=== PATIENT | male | born 1955 | race Caucasian/White ===

== ENCOUNTER → 2019-05-17 | Outpatient (CLI) | payer OTHER ==
--- NOTE | 2019-05-18 07:56 | US ---
EXAMINATION TYPE: US kidneys/renal and bladder DATE OF EXAM: 05/17/2019 COMPARISON: NONE CLINICAL HISTORY: N18.3 CKD. Abnormal labs EXAM MEASUREMENTS: Right Kidney: 10.7 x 5.9 x 6.2 cm Left Kidney: 9.5 x 5.0 x 4.5 cm Right Kidney: Appeared wnl Left Kidney: Smaller in size and possible cortical thinning when compared to right kidney Bladder: wnl Bilateral Jets seen: Yes There is no evidence for hydronephrosis at this point in time. No nephrolithiasis is seen. No janina s are identified. The urinary bladder is anechoic. Bilateral ureteral jets are seen. IMPRESSION: Mild cortical thinning on the left with no hydronephrosis or nephrolithiasis.
== END | disposition home or self-care (01) ==
LOC: RADUSWWP 15:33
PROVIDERS: ATTEND Internal Medicine
DX: N18.3 Chronic kidney disease, stage 3 (moderate) (principal); R93.429 Abnormal radiologic findings on diagnostic imaging of unspecified kidney
CPT/HCPCS: 76770

== ENCOUNTER 2021-01-21 17:12 | Inpatient (IN) | payer OTHER ==
[2021-01-21] MEDS ORDERED: SODIUM CHLORIDE 0.9% 500 ML 500 ML IV STA (17:50)
--- NOTE | 2021-01-21 18:00 | ED ---
General Adult HPI - General Source: patient, family, RN notes reviewed, old records reviewed Mode of arrival: wheelchair Limitations: physical limitation - History of Present Illness -: days(s) (5) Location: left, right (Numbness to his hands RESOLVED now), upper extremity, lower extremity (Left lower extremity tremors for 2 days) Radiation: non-radiation Severity scale (1-10): 0 Consistency: intermittent Improves with: none Worsens with: none <Joe Mckinnon - Last Filed: 01/21/21 20:14> <Jeremiah Lin - Last Filed: 01/21/21 20:22> - General Chief complaint: Neuro Symptoms/Deficit Stated complaint: tremors,weakness - History of Present Illness Initial comments: 65-year-old white male, alert and oriented 4, presents to the emergency room with complaints of numbness to his left hand 5 days ago that resolved and then went to his right hand which is also resolved. For the past 2 days patient has developed tremors of the left lower extremity that come and go. He states that he's had insatiable thirst and has been urinating more often. He denies any abdominal pain or dysuria. Patient denies any headaches. He is having difficulty ambulating at home due to the tremors. He did not fall and hit his head. He denies any back pain. (Joe Mckinnon) Patient had presented with paresthesia, increased polyuria and polydipsia, found to be a new onset diabetic with blood sugar greater than 800. He is not acidotic. He does have signs of hyper osmolality with a serum osmolality of 337. He's started on an insulin drip as well as given normal saline boluses while in the emergency department. He will be admitted to the ICU. I discussed case both with the admitting group, [facility]mer for [facility], and with Dr. Fadumo palmer for the ICU. (Jeremiah Lin) - Related Data Home Medications Medication Instructions Recorded Confirmed Aspirin 81 mg PO DAILY 01/21/21 01/21/21 Atorvastatin [Lipitor] 10 mg PO DAILY 01/21/21 01/21/21 Dextroamphetamine/Amphetamine 30 mg PO BID@0800,1600 01/21/21 01/21/21 [Adderall] Omeprazole 20 mg PO DAILY 01/21/21 01/21/21 amLODIPine [Norvasc] 5 mg PO DAILY 01/21/21 01/21/21 hydroCHLOROthiazide 25 mg PO BID@0800,1600 01/21/21 01/21/21 Allergies Allergy/AdvReac Type Severity Reaction Status Date / Time Pork/Porcine Containing Allergy Abdominal Verified 01/21/21 17:32 Products Pain [Pork] Review of Systems ROS Other: All systems not noted in ROS Statement are negative. <Joe Mckinnon - Last Filed: 01/21/21 20:14> ROS Other: All systems not noted in ROS Statement are negative. <ZairexavierJeremiah - Last Filed: 01/21/21 20:22> ROS Statement: Those systems with pertinent positive or pertinent negative responses have been documented in the HPI. Past Medical History Past Medical History: CVA/TIA, GERD/Reflux, Hyperlipidemia, Hypertension History of Any Multi-Drug Resistant Organisms: None Reported Past Surgical History: No Surgical Hx Reported Past Psychological History: ADD/ADHD Smoking Status: Former smoker Past Alcohol Use History: None Reported Past Drug Use History: Marijuana <Joe Mckinnon - Last Filed: 01/21/21 20:14> General Exam Limitations: physical limitation General appearance: alert, in no apparent distress Head exam: Present: atraumatic, normocephalic, normal inspection Eye exam: Present: normal appearance, PERRL, EOMI. Absent: scleral icterus, conjunctival injection, nystagmus, periorbital swelling Pupils: Present: normal accommodation ENT exam: Present: normal exam, normal oropharynx, mucous membranes moist Neck exam: Present: normal inspection, full ROM. Absent: tenderness, meningismus, lymphadenopathy, thyromegaly Respiratory exam: Present: normal lung sounds bilaterally. Absent: respiratory distress, wheezes, rales, rhonchi, stridor, chest wall tenderness, accessory muscle use, decreased breath sounds, prolonged expiratory Cardiovascular Exam: Present: regular rate, normal rhythm, normal heart sounds. Absent: systolic murmur, diastolic murmur, rubs, gallop, clicks GI/Abdominal exam: Present: soft, normal bowel sounds. Absent: distended, tenderness, guarding, rebound, rigid Extremities exam: Present: normal inspection, full ROM, normal capillary refill. Absent: tenderness, pedal edema, joint swelling, calf tenderness Back exam: Present: normal inspection, full ROM. Absent: tenderness, CVA tenderness (R), CVA tenderness (L), muscle spasm, paraspinal tenderness, vertebral tenderness, rash noted Expanded Back exam: Absent: saddle anesthesia Back exam: Negative Straight Leg Raising: Left, Right Neurological exam: Present: alert, oriented X3, CN II-XII intact Expanded Patient oriented to: Present: person, place, time Speech: Present: fluid speech Cranial nerves: EOM's Intact: Normal, Gag Reflex: Normal, Tongue Deviation: Normal Cerebellar function: Finger to Nose: Normal, Heel to Resendez: Normal (Patient with an intermittent visible tremor of the left lower extremity) Motor strength exam: RUE: 5, LUE: 5, RLE: 5, LLE: 5 Eye Response: (4) open spontaneously Motor Response: (6) obeys commands Verbal Response: (5) oriented [place] Total: 15 Psychiatric exam: Present: normal affect, normal mood Skin exam: Present: warm, dry, intact, normal color. Absent: rash, cyanosis, diaphoretic, erythema, petechiae, pallor, mottled <Joe Mckinnon - Last Filed: 01/21/21 20:14> Course Vital Signs 01/21/21 01/21/21 17:29 19:25 Temperature 98.0 F Pulse Rate 87 75 Respiratory 18 18 Rate Blood Pressure 149/87 135/86 O2 Sat by Pulse 95 95 Oximetry EKG Findings - EKG Results: EKG: sinus rhythm (Ventricular rate of 76, CA interval 0.154, QRS of 0.82, Q received 0.488) <Joe Mckinnon - Last Filed: 01/21/21 20:14> Medical Decision Making - Lab Data Result diagrams: 01/21/21 17:51 01/21/21 17:51 <Joe Mckinnon - Last Filed: 01/21/21 20:14> - Lab Data Result diagrams: 01/21/21 17:51 01/21/21 17:51 <Jeremiah Lin - Last Filed: 01/21/21 20:22> - Medical Decision Making Patient's glucose is 851 with evidence of a new onset diabetes. His corrected sodium is 134. Lactic acid is 2.6. Urine shows 4+ glucose. Serum osmolality 337. He was given a liter and half of IV fluids and started on insulin drip. EKG shows no ST elevation in troponin is negative at 0.012. CT of the brain shows cerebral atrophy and an old right internal capsule lacunar infarct no intracranial hemorrhage or mass or midline shift. Pt is alert and oriented, no complaints of pain. Case was discussed with Dr. Lin, patient will be admitted to the ICU with hyperosmolar hyperglycemic syndrome.. (Joe Mckinnon) - Lab Data Lab Results 01/21/21 01/21/21 01/21/21 Range/Units 17:51 17:51 17:51 WBC 9.3 (3.8-10.6) k/uL RBC 6.01 H (4.30-5.90) m/uL Hgb 18.6 H (13.0-17.5) gm/dL Hct 53.4 H (39.0-53.0) % MCV 88.9 (80.0-100.0) fL MCH 30.9 (25.0-35.0) pg MCHC 34.7 (31.0-37.0) g/dL RDW 13.7 (11.5-15.5) % Plt Count 208 (150-450) k/uL MPV 8.7 Neutrophils % 65 % Lymphocytes % 24 % Monocytes % 5 % Eosinophils % 3 % Basophils % 1 % Neutrophils # 6.1 (1.3-7.7) k/uL Lymphocytes # 2.3 (1.0-4.8) k/uL Monocytes # 0.5 (0-1.0) k/uL Eosinophils # 0.2 (0-0.7) k/uL Basophils # 0.1 (0-0.2) k/uL Sodium 122 L (137-145) mmol/L Potassium 4.7 (3.5-5.1) mmol/L Chloride 84 L (98-107) mmol/L Carbon Dioxide 23 (22-30) mmol/L Anion Gap 15 mmol/L BUN 33 H (9-20) mg/dL Creatinine 1.27 H (0.66-1.25) mg/dL Est GFR (CKD-EPI)AfAm 69 (>60 ml/min/1.73 sqM) Est GFR (CKD-EPI)NonAf 59 (>60 ml/min/1.73 sqM) Glucose 851 H* (74-99) mg/dL Osmolality (280-301) mosm/kg Plasma Lactic Acid Capo (0.7-2.0) mmol/L Calcium 9.7 (8.4-10.2) mg/dL Magnesium 1.8 (1.6-2.3) mg/dL Total Bilirubin 1.5 H (0.2-1.3) mg/dL AST 45 (17-59) U/L ALT 52 H (4-49) U/L Alkaline Phosphatase 119 (38-126) U/L Troponin I (0.000-0.034) ng/mL Total Protein 7.3 (6.3-8.2) g/dL Albumin 4.6 (3.5-5.0) g/dL Urine Color Light Yellow Urine Appearance Clear (Clear) Urine pH 6.0 (5.0-8.0) Ur Specific [place] 1.029 (1.001-1.035) Urine Protein Negative (Negative) Urine Glucose (UA) 4+ H (Negative) Urine Ketones Negative (Negative) Urine Blood Negative (Negative) Urine Nitrite Negative (Negative) Urine Bilirubin Negative (Negative) Urine Urobilinogen <2.0 (<2.0) mg/dL Ur Leukocyte Esterase Negative (Negative) Acetone, Qual (Negative) 01/21/21 01/21/21 01/21/21 Range/Units 17:51 17:51 19:18 WBC (3.8-10.6) k/uL RBC (4.30-5.90) m/uL Hgb (13.0-17.5) gm/dL Hct (39.0-53.0) % MCV (80.0-100.0) fL MCH (25.0-35.0) pg MCHC (31.0-37.0) g/dL RDW (11.5-15.5) % Plt Count (150-450) k/uL MPV Neutrophils % % Lymphocytes % % Monocytes % % Eosinophils % % Basophils % % Neutrophils # (1.3-7.7) k/uL Lymphocytes # (1.0-4.8) k/uL Monocytes # (0-1.0) k/uL Eosinophils # (0-0.7) k/uL Basophils # (0-0.2) k/uL Sodium (137-145) mmol/L Potassium (3.5-5.1) mmol/L Chloride (98-107) mmol/L Carbon Dioxide (22-30) mmol/L Anion Gap mmol/L BUN (9-20) mg/dL Creatinine (0.66-1.25) mg/dL Est GFR (CKD-EPI)AfAm (>60 ml/min/1.73 sqM) Est GFR (CKD-EPI)NonAf (>60 ml/min/1.73 sqM) Glucose (74-99) mg/dL Osmolality 337 H* (280-301) mosm/kg Plasma Lactic Acid Capo 2.6 H* (0.7-2.0) mmol/L Calcium (8.4-10.2) mg/dL Magnesium (1.6-2.3) mg/dL Total Bilirubin (0.2-1.3) mg/dL AST (17-59) U/L ALT (4-49) U/L Alkaline Phosphatase (38-126) U/L Troponin I <0.012 (0.000-0.034) ng/mL Total Protein (6.3-8.2) g/dL Albumin (3.5-5.0) g/dL Urine Color Urine Appearance (Clear) Urine pH (5.0-8.0) Ur Specific [place] (1.001-1.035) Urine Protein (Negative) Urine Glucose (UA) (Negative) Urine Ketones (Negative) Urine Blood (Negative) Urine Nitrite (Negative) Urine Bilirubin (Negative) Urine Urobilinogen (<2.0) mg/dL Ur Leukocyte Esterase (Negative) Acetone, Qual Negative (Negative) Disposition Decision Date: 01/21/21 Decision Time: 20:15 <Joe Mckinnon - Last Filed: 01/21/21 20:14> <Jeremiah Lin - Last Filed: 01/21/21 20:22> Clinical Impression: Hyperosmolar hyperglycemic state (HHS) Disposition: ADMITTED IP TO THIS HOSP Condition: Fair Referrals: Nicholas Perez MD [Primary Care Provider] - 1-2 days
[2021-01-21 18:16] LABS: Appearance,Urine Clear (Clear); Basophils # (A) 0.1 k/uL (0-0.2); Basophils % (A) 1 %; Bilirubin,Urine Negative (Negative); Blood,Urine Negative (Negative); Color,Urine Light Yellow; Eosinophils # (A) 0.2 k/uL (0-0.7); Eosinophils % (A) 3 %; Glucose,Urine (UA) 4+ (Negative); HCT 53.4 % (39.0-53.0); HGB 18.6 gm/dL (13.0-17.5); Ketones,Urine Negative (Negative); Leukocyte Esterase,Urine Negative (Negative); Lymphocytes # (A) 2.3 k/uL (1.0-4.8); Lymphocytes % (A) 24 %; MCH 30.9 pg (25.0-35.0); MCHC 34.7 g/dL (31.0-37.0); MCV 88.9 fL (80.0-100.0); Mean Platelet Volume 8.7; Monocytes # (A) 0.5 k/uL (0-1.0); Monocytes % (A) 5 %; Neutrophils # (A) 6.1 k/uL (1.3-7.7); Neutrophils % (A) 65 %; Nitrite,Urine Negative (Negative); Platelet Count 208 k/uL (150-450); Protein,Urine Negative (Negative); RBC 6.01 m/uL (4.30-5.90); RDW 13.7 % (11.5-15.5); Specific Gravity,Urine 1.029 (1.001-1.035); Urobilinogen,Urine <2.0 mg/dL (<2.0); WBC 9.3 k/uL (3.8-10.6)
[2021-01-21 18:31] LABS: Albumin 4.6 g/dL (3.5-5.0); Calcium 9.7 mg/dL (8.4-10.2); Magnesium 1.8 mg/dL (1.6-2.3); Total Bilirubin 1.5 mg/dL (0.2-1.3); Total Protein 7.3 g/dL (6.3-8.2)
[2021-01-21 18:38] LABS: Potassium 4.7 mmol/L (3.5-5.1)
[2021-01-21] MEDS ORDERED: SODIUM CHLORIDE 0.9% 1,000 ML IV ONE ×2 (18:41→20:16)
[2021-01-21] MEDS ORDERED: SODIUM CHLORIDE 0.9% 1,000 ML IV SCH (18:45)
[2021-01-21] MEDS ORDERED: INSULIN REGULAR BOLUS (FROM DRIP BAG) IV ONE (18:45)
--- NOTE | 2021-01-21 19:14 | CT ---
EXAMINATION TYPE: CT brain wolf lara con DATE OF EXAM: 01/21/2021 COMPARISON: None HISTORY: Pain, whole body tremors. Pt hx stroke w/LT side weakness CT DLP: 1527.6 mGycm Automated exposure control for dose reduction was used. Images of the brain and cervical spine obtained with no contrast. There is cerebral atrophy. There is no mass effect nor midline shift. There is no sign of intracrania l hemorrhage. There is 2 x 1 cm area of hypodensity in the anterior right internal capsule related to old lacunar infarct. The calvarium is intact. Skull base is intact. There is normal aeration of the mastoid sinuses. Cervical vertebra have normal alignment. There is anterior spurring from C3 to C7. Facet joints are i ntact. Posterior elements are intact. There is no evidence of a fracture. There is minimal cervical d isc space narrowing. IMPRESSION: Mild spondylotic changes in the cervical spine. No fracture. Cerebral atrophy and old right internal capsule lacunar infarct. No acute intracranial abnormality.
[2021-01-21] MEDS: INSULIN REGULAR 100 UNIT in SODIUM CHLORIDE 0.9% 100 ML IV SCH (19:35)
[2021-01-21] MEDS ORDERED: SODIUM CHLORIDE 0.9% 500 ML 500 ML IV ONE (20:20)
[2021-01-21 20:31] LABS: Glucose,Whole Blood 564 mg/dL (75-99)
[2021-01-21 20:31] LABS: Glucose,Whole Blood 599 mg/dL (75-99)
[2021-01-21 20:38] LABS: VBG PH 7.41 (7.31-7.41)
[2021-01-21 21:03] LABS: Glucose,Whole Blood 451 mg/dL (75-99)
[2021-01-21 21:36] LABS: Glucose,Whole Blood 371 mg/dL (75-99)
[2021-01-21 22:14] LABS: Glucose,Whole Blood 300 mg/dL (75-99)
[2021-01-21] MEDS: D5-0.45% NACL WITH KCL 20MEQ/L 1,000 ML IV SCH (22:50)
[2021-01-21 23:13] LABS: Glucose,Whole Blood 378 mg/dL (75-99)
[2021-01-22 00:15] LABS: Glucose,Whole Blood 233 mg/dL (75-99)
[2021-01-22 00:39] LABS: African American GFR (CKD) >90 (>60 ml/min/1.73 sqM); Anion Gap 10 mmol/L; Blood Urea Nitrogen 27 mg/dL (9-20); Carbon Dioxide 25 mmol/L (22-30); Chloride 98 mmol/L (98-107); Glucose 221 mg/dL (74-99); Non-African American GFR(CKD) 83 (>60 ml/min/1.73 sqM); Phosphorus 2.4 mg/dL (2.5-4.5); Potassium 2.8 mmol/L (3.5-5.1); Sodium 133 mmol/L (137-145)
[2021-01-22 01:19] LABS: Glucose,Whole Blood 185 mg/dL (75-99)
[2021-01-22] MEDS: POTASSIUM CHLORIDE ER 20 MEQ TAB.ER PO SCH ×3 (02:09→04:35)
[2021-01-22 02:13] LABS: Glucose,Whole Blood 173 mg/dL (75-99)
[2021-01-22 03:13] LABS: Glucose,Whole Blood 148 mg/dL (75-99)
[2021-01-22 04:08] LABS: ALT 44 U/L (4-49); AST 33 U/L (17-59); African American GFR (CKD) >90 (>60 ml/min/1.73 sqM); Albumin 3.8 g/dL (3.5-5.0); Alkaline Phosphatase 86 U/L (38-126); Anion Gap 8 mmol/L; Blood Urea Nitrogen 24 mg/dL (9-20); Calcium 8.8 mg/dL (8.4-10.2); Carbon Dioxide 28 mmol/L (22-30); Chloride 99 mmol/L (98-107); Glucose 120 mg/dL (74-99); Non-African American GFR(CKD) 83 (>60 ml/min/1.73 sqM); Phosphorus 2.4 mg/dL (2.5-4.5); Sodium 135 mmol/L (137-145); Total Bilirubin 0.9 mg/dL (0.2-1.3); Total Protein 6.4 g/dL (6.3-8.2)
[2021-01-22 04:23] LABS: Basophils # (A) 0.1 k/uL (0-0.2); Basophils % (A) 1 %; Eosinophils # (A) 0.3 k/uL (0-0.7); Eosinophils % (A) 4 %; HCT 48.6 % (39.0-53.0); Lymphocytes # (A) 3.1 k/uL (1.0-4.8); Lymphocytes % (A) 36 %; MCH 30.4 pg (25.0-35.0); MCHC 34.9 g/dL (31.0-37.0); MCV 86.9 fL (80.0-100.0); Mean Platelet Volume 8.1; Monocytes # (A) 0.5 k/uL (0-1.0); Monocytes % (A) 6 %; Neutrophils # (A) 4.5 k/uL (1.3-7.7); Neutrophils % (A) 52 %; Platelet Count 175 k/uL (150-450); RBC 5.59 m/uL (4.30-5.90); RDW 13.9 % (11.5-15.5); WBC 8.7 k/uL (3.8-10.6)
[2021-01-22 04:37] LABS: Glucose,Whole Blood 202 mg/dL (75-99)
[2021-01-22] MEDS: D5-0.45% NACL WITH KCL 20MEQ/L 1,000 ML IV SCH (04:39)
[2021-01-22 05:36] LABS: Glucose,Whole Blood 208 mg/dL (75-99)
[2021-01-22] MEDS: INSULIN REGULAR 100 UNIT in SODIUM CHLORIDE 0.9% 100 ML IV SCH (06:27)
[2021-01-22 07:36] LABS: Glucose,Whole Blood 257 mg/dL (75-99)
[2021-01-22 08:07] LABS: Glucose,Whole Blood 259 mg/dL (75-99)
[2021-01-22 08:52] LABS: African American GFR (CKD) >90 (>60 ml/min/1.73 sqM); Anion Gap 10 mmol/L; Blood Urea Nitrogen 20 mg/dL (9-20); Calcium 8.6 mg/dL (8.4-10.2); Carbon Dioxide 21 mmol/L (22-30); Chloride 101 mmol/L (98-107); Glucose 267 mg/dL (74-99); Non-African American GFR(CKD) 88 (>60 ml/min/1.73 sqM); Phosphorus 2.7 mg/dL (2.5-4.5); Sodium 132 mmol/L (137-145)
[2021-01-22 08:57] LABS: Magnesium 1.8 mg/dL (1.6-2.3); Potassium 4.6 mmol/L (3.5-5.1)
[2021-01-22] MEDS ORDERED: INSULIN DETEMIR (LEVEMIR) 100 UNIT/ML SYR SQ SCH (09:00)
[2021-01-22] MEDS: ASPIRIN 81 MG PO SCH (09:46)
[2021-01-22] MEDS: amLODIPine 5 MG TAB PO SCH (09:46)
[2021-01-22] MEDS: ATORVASTATIN 10 MG TAB PO SCH (09:46)
[2021-01-22] MEDS: PANTOPRAZOLE 40 MG TABLET PO SCH (09:47)
--- NOTE | 2021-01-22 10:31 | P.HPIM ---
History of Present Illness Patient is pleasant 71-year-old male came in with complaints of polyuria polydipsia along with some bun numbness in the left hand. Patient developed worsening left lower extremity. Patient is found to have highly elevated blood sugars of 851 patient is not a known diabetic and doesn't sodium of 122 and multiple other electrolyte abnormalities including serum creatinine of 1.27, serum calcium was 9.7. Patient also had elevated lactic acid of 2.6. Patient doesn't have any fever chills denied any nausea vomiting diarrhea did Patient was started on insulin drip with concerns of the hyperglycemic hyperosmolar state, patient blood sugars improved patient is presently off insulin patient was started on long-acting insulin at night along with sliding scale and I'm adding metformin. Patient lactic acidosis resolved because of which I believe metformin is okay. Patient is still on IV fluids at this time. Patient will be transferred out of ICU. REVIEW OF SYSTEMS: CONSTITUTIONAL: No fever, no malaise, no fatigue. HEENT: No recent visual problems or hearing problems. Denied any sore throat. CARDIOVASCULAR: No chest pain, orthopnea, PND, no palpitations, no syncope. PULMONARY: No shortness of breath, no cough, no hemoptysis. GASTROINTESTINAL: No diarrhea, no nausea, no vomiting, no abdominal pain. NEUROLOGICAL: No headaches, no weakness. HEMATOLOGICAL: Denies any bleeding or petechiae. GENITOURINARY: Denies any burning micturition, frequency, or urgency. MUSCULOSKELETAL/RHEUMATOLOGICAL: Denies any joint pain, swelling, or any muscle pain. ENDOCRINE: As mentioned in HPI The rest of the 14-point review of systems is negative. PHYSICAL EXAMINATION: GENERAL: The patient is alert and oriented x3, not in any acute distress. Well developed, well nourished. HEENT: Pupils are round and equally reacting to light. EOMI. No scleral icterus. No conjunctival pallor. Normocephalic, atraumatic. No pharyngeal erythema. No thyromegaly. CARDIOVASCULAR: S1 and S2 present. No murmurs, rubs, or gallops. PULMONARY: Chest is clear to auscultation, no wheezing or crackles. ABDOMEN: Soft, nontender, nondistended, normoactive bowel sounds. No palpable organomegaly. MUSCULOSKELETAL: No joint swelling or deformity. EXTREMITIES: No cyanosis, clubbing, or pedal edema. NEUROLOGICAL: Gross neurological examination did not reveal any focal deficits. SKIN: No rashes. Assessment and plan -Hyperglycemia with possible hyperglycemic hyperosmolar state: Patient the HHS resolved patient is a newly diagnosed diabetic patient is an above-mentioned regimen will monitor the blood sugars today patient may need more long-acting insulin. Patient related a medical education and dietary education patient is on the cardiac consistent diet at this time. -Tingling numbness and tremors secondary to provided abnormalities and dehydration from hyperglycemia patient's symptoms are not consistent with TIA or stroke. Patient had a cervical and head and spine CT which did not show any significant acute abnormality -Hypertension -Hyponatremia pseudohyponatremia from hyperglycemia as well as from dehydration next and have lactic acidosis secondary to dehydration from polyuria -CVA TIA in the past Hypergastric esophageal reflux disease -Hyperlipidemia -Marijuana use DVT prophylaxis: Lovenox Past Medical History Past Medical History: CVA/TIA, GERD/Reflux, Hyperlipidemia, Hypertension History of Any Multi-Drug Resistant Organisms: None Reported Past Surgical History: No Surgical Hx Reported Past Psychological History: ADD/ADHD Smoking Status: Former smoker Past Alcohol Use History: None Reported Past Drug Use History: Marijuana Medications and Allergies Home Medications Medication Instructions Recorded Confirmed Type Aspirin 81 mg PO DAILY 01/21/21 01/21/21 History Atorvastatin [Lipitor] 10 mg PO DAILY 01/21/21 01/21/21 History Dextroamphetamine/Amphetamine 30 mg PO BID@0800,1600 01/21/21 01/21/21 History [Adderall] Omeprazole 20 mg PO DAILY 01/21/21 01/21/21 History amLODIPine [Norvasc] 5 mg PO DAILY 01/21/21 01/21/21 History hydroCHLOROthiazide 25 mg PO BID@0800,1600 01/21/21 01/21/21 History Allergies Allergy/AdvReac Type Severity Reaction Status Date / Time Pork/Porcine Containing Allergy Abdominal Verified 01/21/21 17:32 Products Pain [Pork] Physical Exam Vitals: Vital Signs Temp Pulse Pulse Resp BP BP Pulse Ox 01/22/21 10:00 59 L 17 122/88 98 01/22/21 09:00 61 19 132/91 95 01/22/21 08:00 97.5 F L 64 60 12 105/72 121/106 97 01/22/21 07:00 53 L 12 126/104 93 L 01/22/21 06:00 56 L 56 L 11 L 129/74 126/87 98 01/22/21 05:00 55 L 17 124/73 01/22/21 04:00 97.6 F 57 L 58 L 13 129/71 129/74 95 01/22/21 03:00 52 L 14 138/72 95 01/22/21 02:00 53 L 51 L 15 127/80 129/71 93 L 01/22/21 01:00 55 L 13 129/82 93 L 01/22/21 00:00 97.8 F 60 56 L 16 140/81 127/80 94 L 01/21/21 23:14 96 01/21/21 22:51 69 18 134/86 96 01/21/21 22:00 15 01/21/21 20:39 73 18 117/84 97 01/21/21 19:25 75 18 135/86 95 01/21/21 17:29 98.0 F 87 18 149/87 95 Intake and Output 01/21/21 01/22/21 01/22/21 22:59 06:59 14:59 Intake Total 1127.128 796.738 Output Total 350 325 Balance 777.128 471.738 Intake: Intake, IV Titration 1127.128 478.738 Amount D5-0.45% NaCl with KCl 1050 470 20Meq/l 1,000 ml @ 20 mls /hr IV .Q24H [facility] Rx#: [id number] Insulin Regular 100 unit 77.128 8.738 In Sodium Chloride 0.9% 100 ml @ 0.1 UNITS/KG/HR 9.621 mls/hr IV .[id number] [facility]I Rx#:[id number] Oral 318 Output: Urine 350 325 Other: Voiding Method Toilet Urinal Urinal Weight 95.254 kg 90.1 kg Results CBC & Chem 7: 01/22/21 03:41 01/22/21 08:02 Labs: Abnormal Lab Results - Last 24 Hours (Table) 01/21/21 01/21/21 01/21/21 Range/Units 17:51 17:51 17:51 RBC 6.01 H (4.30-5.90) m/uL Hgb 18.6 H (13.0-17.5) gm/dL Hct 53.4 H (39.0-53.0) % VBG HCO3 (24-28) mmol/L Sodium 122 L (137-145) mmol/L Potassium (3.5-5.1) mmol/L Chloride 84 L (98-107) mmol/L Carbon Dioxide (22-30) mmol/L BUN 33 H (9-20) mg/dL Creatinine 1.27 H (0.66-1.25) mg/dL Glucose 851 H* (74-99) mg/dL POC Glucose (mg/dL) (75-99) mg/dL Osmolality (280-301) mosm/kg Plasma Lactic Acid Capo (0.7-2.0) mmol/L Phosphorus (2.5-4.5) mg/dL Total Bilirubin 1.5 H (0.2-1.3) mg/dL ALT 52 H (4-49) U/L Urine Glucose (UA) 4+ H (Negative) 01/21/21 01/21/21 01/21/21 Range/Units 17:51 18:41 19:18 RBC (4.30-5.90) m/uL Hgb (13.0-17.5) gm/dL Hct (39.0-53.0) % VBG HCO3 30 H (24-28) mmol/L Sodium (137-145) mmol/L Potassium (3.5-5.1) mmol/L Chloride (98-107) mmol/L Carbon Dioxide (22-30) mmol/L BUN (9-20) mg/dL Creatinine (0.66-1.25) mg/dL Glucose (74-99) mg/dL POC Glucose (mg/dL) (75-99) mg/dL Osmolality 337 H* (280-301) mosm/kg Plasma Lactic Acid Capo 2.6 H* (0.7-2.0) mmol/L Phosphorus (2.5-4.5) mg/dL Total Bilirubin (0.2-1.3) mg/dL ALT (4-49) U/L Urine Glucose (UA) (Negative) 01/21/21 01/21/21 01/21/21 Range/Units 20:29 20:30 21:02 RBC (4.30-5.90) m/uL Hgb (13.0-17.5) gm/dL Hct (39.0-53.0) % VBG HCO3 (24-28) mmol/L Sodium (137-145) mmol/L Potassium (3.5-5.1) mmol/L Chloride (98-107) mmol/L Carbon Dioxide (22-30) mmol/L BUN (9-20) mg/dL Creatinine (0.66-1.25) mg/dL Glucose (74-99) mg/dL POC Glucose (mg/dL) 564 H 599 H 451 H (75-99) mg/dL Osmolality (280-301) mosm/kg Plasma Lactic Acid Capo (0.7-2.0) mmol/L Phosphorus (2.5-4.5) mg/dL Total Bilirubin (0.2-1.3) mg/dL ALT (4-49) U/L Urine Glucose (UA) (Negative) 01/21/21 01/21/21 01/21/21 Range/Units 21:34 22:12 23:11 RBC (4.30-5.90) m/uL Hgb (13.0-17.5) gm/dL Hct (39.0-53.0) % VBG HCO3 (24-28) mmol/L Sodium (137-145) mmol/L Potassium (3.5-5.1) mmol/L Chloride (98-107) mmol/L Carbon Dioxide (22-30) mmol/L BUN (9-20) mg/dL Creatinine (0.66-1.25) mg/dL Glucose (74-99) mg/dL POC Glucose (mg/dL) 371 H 300 H 378 H (75-99) mg/dL Osmolality (280-301) mosm/kg Plasma Lactic Acid Capo (0.7-2.0) mmol/L Phosphorus (2.5-4.5) mg/dL Total Bilirubin (0.2-1.3) mg/dL ALT (4-49) U/L Urine Glucose (UA) (Negative) 01/22/21 01/22/21 01/22/21 Range/Units 00:13 00:18 01:18 RBC (4.30-5.90) m/uL Hgb (13.0-17.5) gm/dL Hct (39.0-53.0) % VBG HCO3 (24-28) mmol/L Sodium 133 L (137-145) mmol/L Potassium 2.8 L (3.5-5.1) mmol/L Chloride (98-107) mmol/L Carbon Dioxide (22-30) mmol/L BUN 27 H (9-20) mg/dL Creatinine (0.66-1.25) mg/dL Glucose 221 H (74-99) mg/dL POC Glucose (mg/dL) 233 H 185 H (75-99) mg/dL Osmolality (280-301) mosm/kg Plasma Lactic Acid Capo (0.7-2.0) mmol/L Phosphorus 2.4 L (2.5-4.5) mg/dL Total Bilirubin (0.2-1.3) mg/dL ALT (4-49) U/L Urine Glucose (UA) (Negative) 01/22/21 01/22/21 01/22/21 Range/Units 02:12 03:10 03:41 RBC (4.30-5.90) m/uL Hgb (13.0-17.5) gm/dL Hct (39.0-53.0) % VBG HCO3 (24-28) mmol/L Sodium 135 L (137-145) mmol/L Potassium 3.0 L (3.5-5.1) mmol/L Chloride (98-107) mmol/L Carbon Dioxide (22-30) mmol/L BUN 24 H (9-20) mg/dL Creatinine (0.66-1.25) mg/dL Glucose 120 H (74-99) mg/dL POC Glucose (mg/dL) 173 H 148 H (75-99) mg/dL Osmolality (280-301) mosm/kg Plasma Lactic Acid Capo (0.7-2.0) mmol/L Phosphorus 2.4 L (2.5-4.5) mg/dL Total Bilirubin (0.2-1.3) mg/dL ALT (4-49) U/L Urine Glucose (UA) (Negative) 01/22/21 01/22/21 01/22/21 Range/Units 04:35 05:34 07:35 RBC (4.30-5.90) m/uL Hgb (13.0-17.5) gm/dL Hct (39.0-53.0) % VBG HCO3 (24-28) mmol/L Sodium (137-145) mmol/L Potassium (3.5-5.1) mmol/L Chloride (98-107) mmol/L Carbon Dioxide (22-30) mmol/L BUN (9-20) mg/dL Creatinine (0.66-1.25) mg/dL Glucose (74-99) mg/dL POC Glucose (mg/dL) 202 H 208 H 257 H (75-99) mg/dL Osmolality (280-301) mosm/kg Plasma Lactic Acid Capo (0.7-2.0) mmol/L Phosphorus (2.5-4.5) mg/dL Total Bilirubin (0.2-1.3) mg/dL ALT (4-49) U/L Urine Glucose (UA) (Negative) 01/22/21 01/22/21 Range/Units 08:02 08:06 RBC (4.30-5.90) m/uL Hgb (13.0-17.5) gm/dL Hct (39.0-53.0) % VBG HCO3 (24-28) mmol/L Sodium 132 L (137-145) mmol/L Potassium (3.5-5.1) mmol/L Chloride (98-107) mmol/L Carbon Dioxide 21 L (22-30) mmol/L BUN (9-20) mg/dL Creatinine (0.66-1.25) mg/dL Glucose 267 H (74-99) mg/dL POC Glucose (mg/dL) 259 H (75-99) mg/dL Osmolality (280-301) mosm/kg Plasma Lactic Acid Capo (0.7-2.0) mmol/L Phosphorus (2.5-4.5) mg/dL Total Bilirubin (0.2-1.3) mg/dL ALT (4-49) U/L Urine Glucose (UA) (Negative) Thrombosis Risk Factor Assmnt - Choose All That Apply Any of the Below Risk Factors Present?: No
[2021-01-22 11:10] LABS: Glucose,Whole Blood 337 mg/dL (75-99)
[2021-01-22] MEDS: INSULIN ASPART (NovoLOG) 100 UNIT/ML VIAL SQ SCH ×3 (11:29→20:37)
[2021-01-22] MEDS: metFORMIN 500 MG TAB PO SCH ×2 (11:29→16:32)
[2021-01-22 12:48] VITALS: BMI 33.0
--- NOTE | 2021-01-22 12:48 | P.CNPUL ---
History of Present Illness Consult date: 01/22/21 Chief complaint: Hyperglycemia History of present illness: 65-year-old male patient, presented to the hospital because of polyuria and polydipsia and the patient was found to be dehydrated and weak and dizzy and immediately the patient was diagnosed having diabetes mellitus as the patient's blood sugar was elevated at 851. He is not known to be diabetic from before. He did have also electrode disturbances. His lactic acid level was at 2.6. His sodium was up to 122 which is this with hypoglycemia. Creatinine was up to 1.27 with a BUN of 33 consistent with prerenal azotemia. Serum osmolality was 337. UA was negative. White cell count at 9.3 with a hemoglobin of 18.6. CAT scan of the brain was negative. It showed some cerebral atrophy and old right internal capsule lacunar infarct. Patient was treated with insulin drip. He was started on insulin drip and currently is on 4.5 units an hour. Blood sugar this morning though was under much better control. He was also resuscitated IV fluids. The patient was given a total of 3 L of fluid boluses and currently is on maintenance fluids. No history of any coronary artery disease. His noted hypertension and hyperlipidemia. No nausea. No vomiting. No diarrhea. No abdominal pain. No chest pain. No altered mental status this morning. Review of Systems Constitutional: Reports fatigue, Reports weakness Eyes: denies as per HPI, denies blurred vision, denies bulging eye, denies decreased vision, denies diplopia, denies discharge, denies dry eye, denies irritation, denies itching, denies pain, denies photophobia, denies loss of peripheral vision, denies loss of vision, denies tunnel vision/blind spots Ears: deny: decreased hearing, ear discharge, earache, tinnitus Ears, nose, mouth and throat: Reports as per HPI Breasts: absent: as per HPI, gynecomastia Cardiovascular: Reports as per HPI Respiratory: Reports as per HPI Gastrointestinal: Reports as per HPI Genitourinary: Reports as per HPI Musculoskeletal: Reports as per HPI Musculoskeletal: absent: ankle pain, ankle stiffness, ankle swelling Integumentary: Reports as per HPI Neurological: Reports weakness Psychiatric: Reports as per HPI Endocrine: Reports as per HPI, Reports high blood sugars, Reports polydipsia, Reports polyuria Hematologic/Lymphatic: Reports as per HPI Allergic/Immunologic: Reports as per HPI Past Medical History Past Medical History: CVA/TIA, Diabetes Mellitus, GERD/Reflux, Hyperlipidemia, Hypertension Additional Past Medical History / Comment(s): 01/21/21 admitted with [facility] new diabetes diagnosis. History of Any Multi-Drug Resistant Organisms: None Reported Past Surgical History: No Surgical Hx Reported Past Psychological History: ADD/ADHD Smoking Status: Former smoker Past Alcohol Use History: None Reported Past Drug Use History: Marijuana Medications and Allergies Home Medications Medication Instructions Recorded Confirmed Type Aspirin 81 mg PO DAILY 01/21/21 01/21/21 History Atorvastatin [Lipitor] 10 mg PO DAILY 01/21/21 01/21/21 History Dextroamphetamine/Amphetamine 30 mg PO BID@0800,1600 01/21/21 01/21/21 History [Adderall] Omeprazole 20 mg PO DAILY 01/21/21 01/21/21 History amLODIPine [Norvasc] 5 mg PO DAILY 01/21/21 01/21/21 History hydroCHLOROthiazide 25 mg PO BID@0800,1600 01/21/21 01/21/21 History Allergies Allergy/AdvReac Type Severity Reaction Status Date / Time Pork/Porcine Containing Allergy Abdominal Verified 01/21/21 17:32 Products Pain [Pork] Physical Exam Vitals: Vital Signs Temp Pulse Pulse Resp BP BP Pulse Ox 01/22/21 12:00 98 F 59 L 17 144/86 97 01/22/21 11:00 58 L 12 143/85 95 01/22/21 10:00 59 L 17 122/88 98 01/22/21 09:00 61 19 132/91 95 01/22/21 08:00 97.5 F L 64 60 12 105/72 121/106 97 01/22/21 07:00 53 L 12 126/104 93 L 01/22/21 06:00 56 L 56 L 11 L 129/74 126/87 98 01/22/21 05:00 55 L 17 124/73 01/22/21 04:00 97.6 F 57 L 58 L 13 129/71 129/74 95 01/22/21 03:00 52 L 14 138/72 95 01/22/21 02:00 53 L 51 L 15 127/80 129/71 93 L 01/22/21 01:00 55 L 13 129/82 93 L 01/22/21 00:00 97.8 F 60 56 L 16 140/81 127/80 94 L 01/21/21 23:14 96 01/21/21 22:51 69 18 134/86 96 01/21/21 22:00 15 01/21/21 20:39 73 18 117/84 97 01/21/21 19:25 75 18 135/86 95 01/21/21 17:29 98.0 F 87 18 149/87 95 Intake and Output 01/21/21 01/22/21 01/22/21 22:59 06:59 14:59 Intake Total 1127.128 836.738 Output Total 350 575 Balance 777.128 261.738 Intake: Intake, IV Titration 1127.128 518.738 Amount D5-0.45% NaCl with KCl 1050 510 20Meq/l 1,000 ml @ 20 mls /hr IV .Q24H MONI Rx#: [id number] Insulin Regular 100 unit 77.128 8.738 In Sodium Chloride 0.9% 100 ml @ 0.1 UNITS/KG/HR 9.621 mls/hr IV .[id number] MONI Rx#:[id number] Oral 318 Output: Urine 350 575 Other: Voiding Method Toilet Urinal Urinal Weight 95.254 kg 90.1 kg Awake and alert and not in acute respiratory distress HEENT: Pupils are round and equally reacting to light. EOMI. No scleral icterus. No conjunctival pallor. Normocephalic, atraumatic. No pharyngeal erythema. No thyromegaly. The patient is edentulous CARDIOVASCULAR: S1 and S2 present. No murmurs, rubs, or gallops. PULMONARY: Chest is clear to auscultation, no wheezing or crackles. ABDOMEN: Soft, nontender, nondistended, normoactive bowel sounds. No palpable organomegaly. MUSCULOSKELETAL: No joint swelling or deformity. EXTREMITIES: No cyanosis, clubbing, or pedal edema. NEUROLOGICAL: Gross neurological examination did not reveal any focal deficits. Examination of the skin revealed no evidence of significant rashes, suspicious appearing nevi or other concerning lesions. Results - Laboratory Findings CBC and BMP: 01/22/21 03:41 01/22/21 08:02 Abnormal lab findings: Abnormal Labs 01/21/21 01/21/21 01/21/21 17:51 17:51 17:51 RBC 6.01 H Hgb 18.6 H Hct 53.4 H VBG HCO3 Sodium 122 L Potassium Chloride 84 L Carbon Dioxide BUN 33 H Creatinine 1.27 H Glucose 851 H* POC Glucose (mg/dL) Osmolality Plasma Lactic Acid Capo Phosphorus Total Bilirubin 1.5 H ALT 52 H Urine Glucose (UA) 4+ H 01/21/21 01/21/21 01/21/21 17:51 18:41 19:18 RBC Hgb Hct VBG HCO3 30 H Sodium Potassium Chloride Carbon Dioxide BUN Creatinine Glucose POC Glucose (mg/dL) Osmolality 337 H* Plasma Lactic Acid Capo 2.6 H* Phosphorus Total Bilirubin ALT Urine Glucose (UA) 01/21/21 01/21/21 01/21/21 20:29 20:30 21:02 RBC Hgb Hct VBG HCO3 Sodium Potassium Chloride Carbon Dioxide BUN Creatinine Glucose POC Glucose (mg/dL) 564 H 599 H 451 H Osmolality Plasma Lactic Acid Capo Phosphorus Total Bilirubin ALT Urine Glucose (UA) 01/21/21 01/21/21 01/21/21 21:34 22:12 23:11 RBC Hgb Hct VBG HCO3 Sodium Potassium Chloride Carbon Dioxide BUN Creatinine Glucose POC Glucose (mg/dL) 371 H 300 H 378 H Osmolality Plasma Lactic Acid Capo Phosphorus Total Bilirubin ALT Urine Glucose (UA) 01/22/21 01/22/21 01/22/21 00:13 00:18 01:18 RBC Hgb Hct VBG HCO3 Sodium 133 L Potassium 2.8 L Chloride Carbon Dioxide BUN 27 H Creatinine Glucose 221 H POC Glucose (mg/dL) 233 H 185 H Osmolality Plasma Lactic Acid Capo Phosphorus 2.4 L Total Bilirubin ALT Urine Glucose (UA) 01/22/21 01/22/21 01/22/21 02:12 03:10 03:41 RBC Hgb Hct VBG HCO3 Sodium 135 L Potassium 3.0 L Chloride Carbon Dioxide BUN 24 H Creatinine Glucose 120 H POC Glucose (mg/dL) 173 H 148 H Osmolality Plasma Lactic Acid Capo Phosphorus 2.4 L Total Bilirubin ALT Urine Glucose (UA) 01/22/21 01/22/21 01/22/21 04:35 05:34 07:35 RBC Hgb Hct VBG HCO3 Sodium Potassium Chloride Carbon Dioxide BUN Creatinine Glucose POC Glucose (mg/dL) 202 H 208 H 257 H Osmolality Plasma Lactic Acid Capo Phosphorus Total Bilirubin ALT Urine Glucose (UA) 01/22/21 01/22/21 01/22/21 08:02 08:06 11:09 RBC Hgb Hct VBG HCO3 Sodium 132 L Potassium Chloride Carbon Dioxide 21 L BUN Creatinine Glucose 267 H POC Glucose (mg/dL) 259 H 337 H Osmolality Plasma Lactic Acid Capo Phosphorus Total Bilirubin ALT Urine Glucose (UA) - Diagnostic Findings Chest x-ray: image reviewed Assessment and Plan Plan: 1 acute hyperglycemia with secondary intravascular volume depletion, dehydration, nitrite disturbances, in a patient with new onset diabetes mellitus 2 HHS in a patient with a newly diagnosed diabetes mellitus, type II 3 pseudohyponatremia, recovered 4 acute kidney injury secondary to above recovered 5 hypertension 6 hyperlipidemia 7 previous history of CVA 8 peripheral neuropathy Plan Start this patient on Levemir insulin 18 units along with a slight scale coverage. Start The patient metformin 5 mg by mouth twice a day Diabetic education Stop insulin drip and monitor blood sugar control Resume all medications We'll transfer out of the intensive care unit within the next few hours. We'll continue to follow.
[2021-01-22] MEDS: Dextroamphetamine/Amphetamine [Adderall] PO SCH (15:04)
[2021-01-22 16:29] LABS: Glucose,Whole Blood 314 mg/dL (75-99)
[2021-01-22] MEDS ORDERED: metFORMIN 500 MG TAB PO STA (17:54)
[2021-01-22] MEDS ORDERED: INSULIN DETEMIR (LEVEMIR) 100 UNIT/ML SYR SQ ONE (18:30)
[2021-01-22 20:27] LABS: Glucose,Whole Blood 309 mg/dL (75-99)
[2021-01-23 06:48] LABS: Glucose,Whole Blood 216 mg/dL (75-99)
[2021-01-23] MEDS ORDERED: INSULIN DETEMIR (LEVEMIR) 100 UNIT/ML SYR SQ SCH (07:00)
[2021-01-23] MEDS: metFORMIN 500 MG TAB PO SCH ×2 (07:03→16:22)
[2021-01-23] MEDS: INSULIN ASPART (NovoLOG) 100 UNIT/ML VIAL SQ SCH ×3 (07:03→16:23)
[2021-01-23] MEDS: PANTOPRAZOLE 40 MG TABLET PO SCH (07:08)
[2021-01-23] MEDS: Dextroamphetamine/Amphetamine [Adderall] PO SCH ×2 (08:28→16:03)
[2021-01-23] MEDS: ATORVASTATIN 10 MG TAB PO SCH (08:38)
[2021-01-23] MEDS: amLODIPine 5 MG TAB PO SCH (08:38)
[2021-01-23] MEDS: ASPIRIN 81 MG PO SCH (08:38)
[2021-01-23] MEDS ORDERED: APIXABAN 2.5 MG TABLET PO SCH (09:00)
[2021-01-23 12:03] LABS: Glucose,Whole Blood 288 mg/dL (75-99)
--- NOTE | 2021-01-23 12:12 | P.PN ---
Subjective Progress Note Date: 01/23/21 01/23/2021, the patient is doing well. No specific complaints. The patient is currently on Levemir insulin which was brought up to 25 units daily along with a slight scale coverage. He is HbA1c was up to 14. He is a new onset diabetes mellitus who presented to us with severe dehydration and hyperosmolar nonketotic state and this has recovered. His renal function is normalized. Tolerating his diet. Receiving diabetic education. No altered mentation. Objective - Vital Signs Vital signs: Vital Signs Temp 97.8 F 01/23/21 08:00 Pulse 70 01/23/21 08:00 Resp 14 01/23/21 08:00 BP 122/79 01/23/21 08:00 Pulse Ox 95 01/23/21 08:00 Intake & Output 01/22/21 01/23/21 01/23/21 18:59 06:59 18:59 Intake Total 2396.738 240 300 Output Total 875 400 Balance 1521.738 -160 300 Weight 90.1 kg 90.5 kg Intake: Intake, IV Titration 518.738 Amount D5-0.45% NaCl with KCl 510 20Meq/l 1,000 ml @ 20 mls /hr IV .Q24H MONI Rx#: [id number] Insulin Regular 100 unit 8.738 In Sodium Chloride 0.9% 100 ml @ 0.1 UNITS/KG/HR 9.621 mls/hr IV .[id number] MONI Rx#:[id number] Oral 1878 240 300 Output: Urine 875 400 Other: Voiding Method Urinal Urinal Urinal # Voids 0 1 # Bowel Movements 1 - Exam Awake and alert and not in acute respiratory distress HEENT: Pupils are round and equally reacting to light. EOMI. No scleral icterus. No conjunctival pallor. Normocephalic, atraumatic. No pharyngeal erythema. No thyromegaly. The patient is edentulous CARDIOVASCULAR: S1 and S2 present. No murmurs, rubs, or gallops. PULMONARY: Chest is clear to auscultation, no wheezing or crackles. ABDOMEN: Soft, nontender, nondistended, normoactive bowel sounds. No palpable organomegaly. MUSCULOSKELETAL: No joint swelling or deformity. EXTREMITIES: No cyanosis, clubbing, or pedal edema. NEUROLOGICAL: Gross neurological examination did not reveal any focal deficits. Examination of the skin revealed no evidence of significant rashes, suspicious appearing nevi or other concerning lesions. - Labs CBC & Chem 7: 01/22/21 03:41 01/22/21 08:02 Labs: Abnormal Lab Results - Last 24 Hours (Table) 01/22/21 01/22/21 01/22/21 Range/Units 03:41 16:27 20:25 POC Glucose (mg/dL) 314 H 309 H (75-99) mg/dL Hemoglobin A1c 14.0 H (4.0-6.0) % 01/23/21 01/23/21 Range/Units 06:46 12:01 POC Glucose (mg/dL) 216 H 288 H (75-99) mg/dL Hemoglobin A1c (4.0-6.0) % Assessment and Plan Plan: 1 acute hyperglycemia with secondary intravascular volume depletion, dehydration, nitrite disturbances, in a patient with new onset diabetes mellitus, recovered 2 HHS in a patient with a newly diagnosed diabetes mellitus, type II, recovered 3 pseudohyponatremia, recovered 4 acute kidney injury secondary to above recovered 5 hypertension 6 hyperlipidemia 7 previous history of CVA 8 peripheral neuropathy 9 new-onset diabetes mellitus Plan Levemir insulin 30 units along with a slight scale coverage. metformin 500 mg by mouth twice a day Diabetic education Resume all medications We'll transfer out of the intensive care unit within the next few hours. Possible discharge today
[2021-01-23 14:22] LABS: Glucose,Whole Blood 214 mg/dL (75-99)
[2021-01-23 15:51] VITALS: BP 146/91; PULSE 74; RESP 16; TEMP 97.5
[2021-01-23 16:17] LABS: Glucose,Whole Blood 258 mg/dL (75-99)
--- NOTE | 2021-01-23 23:48 | P.DS ---
Providers Date of admission: 01/21/21 19:21 Attending physician: Eamon Jimenez Consults: 01/21/21 20:12 Consult Physician Routine Consulting Provider: Jeremiah Thorne Consult Reason/Comments: HHS Do you want consulting provider notified?: Already Contacted Primary care physician: Nicholas Perez [facility] Course: Diagnoses: New onset diabetes mellitus Hyperosmolar nonketotic hyperglycemic state Acute kidney injury, resolved Hypertension Hyperlipidemia History of CVA Hospital course: This is a pleasant 65 years old male with multiple medical problems. Presents with polyuria and polydipsia and dehydration. Patient was found to have new onset diabetes mellitus with hemoglobin A1c of 14%. Also he was in hyperosmolar 68 which is resolved now with iv hydration. patient was started on metformin 1000 mg twice a day and levemir switched to lantus for insurance coverage at 30 units daily. his sugar was better controlled today. patient and at bedside were instructed about the need for close glucose monitoring. also educated about signs and symptoms of hyper and hypoglycemia and their management. patient has been evaluated by police district switchboard operator upon admission TODAY FOR DISCHARGE TODAY PATIENT IS BACK TO HIS NORMAL SELF AND ASYMPTOMATIC. he denies chest pain or dyspnea. Abdominal pain. Change in urine or bowel habits. Or dizziness. No fever. Patient is agreeable to go home glucometer is provided for the patient Problems and management plan were discussed with the patient and he verbalized understanding and acceptance Patient was found stable and can be discharged home in guarded prognosis however he needs follow-up as an outpatient. Patient was instructed to follow up with PCP Dr. Ana Gruber within one week and patient agrees with the appointments made for him on 01/29. Was instructed to follow up with can pusher to bowel in 7-10 days and patient and agree to call and make appointment Physical exam Gen: patient is a AAOx3, no distress CVS: S1-S2, RRR, no murmur Lungs: B/L CTA, no wheezing Abdomen: soft, no distention, no tenderness, positive bowel sounds Extremity: no leg edema or induration Time spent more than 35 minutes Patient Condition at Discharge: Fair Plan - Discharge Summary Discharge Rx Participant: No New Discharge Prescriptions: New INSULIN ASPART (NovoLOG) [NovoLOG (formulary)] 0 unit SQ ACHS vial metFORMIN HCL [Glucophage] 1,000 mg PO BID-W/MEALS 30 Days #120 tab Insulin Glargine [Lantus] 30 unit SQ DAILY #1 vial Continue Dextroamphetamine/Amphetamine [Adderall] 30 mg PO BID@0800,1600 Aspirin 81 mg PO DAILY amLODIPine [Norvasc] 5 mg PO DAILY Omeprazole 20 mg PO DAILY Atorvastatin [Lipitor] 10 mg PO DAILY Discontinued hydroCHLOROthiazide 25 mg PO BID@0800,1600 Discharge Medication List Aspirin 81 mg PO DAILY 01/21/21 [History] Atorvastatin [Lipitor] 10 mg PO DAILY 01/21/21 [History] Dextroamphetamine/Amphetamine [Adderall] 30 mg PO BID@0800,1600 01/21/21 [History] Omeprazole 20 mg PO DAILY 01/21/21 [History] amLODIPine [Norvasc] 5 mg PO DAILY 01/21/21 [History] INSULIN ASPART (NovoLOG) [NovoLOG (formulary)] 0 unit SQ ACHS vial 01/23/21 [Rx] Insulin Glargine [Lantus] 30 unit SQ DAILY #1 vial 01/23/21 [Rx] metFORMIN HCL [Glucophage] 1,000 mg PO BID-W/MEALS 30 Days #120 tab 01/23/21 [Rx] Follow up Appointment(s)/Referral(s): Nicholas Perez MD [Primary Care Provider] - 01/29/21 11:00 am (Appointment made for Dr Perez Friday01/29/21 at 1100 AM) [facility] Visiting Nurse, [NON-STAFF] - Diaz Bennett MD [REFERRING] - 10 Days (can pusher ) Patient Instructions/Handouts: Type 2 Diabetes in Adults: New Diagnosis (DC), What to Do if Your Blood Sugar is Low (DC), Diabetes and Nutrition (ED) Activity/Diet/Wound Care/Special Instructions: *Glucometer at [facility] at [facility]. Glucometer is $16.50, test strips are $49.99, and lancets are $8.07. Low carbohydrate 1800 kcal per day Activity is limited to you see your doctor's We recommend to check her glucose 4 times a day, before each meal and at bedtime. Get results in a log book and bring it to your doctor on your appointment date Glucose less than 70 or more than 400, and call 911 on come to emergency room Discharge Disposition: HOME WITH HOME HEALTH SERVICES
[2021-01-24] MEDS ORDERED: INSULIN DETEMIR (LEVEMIR) 100 UNIT/ML SYR SQ SCH (07:00)
== END 2021-01-23 17:50 | disposition home health service (06) | DRG 638 ==
LOC: EC 17:12 → 2SICU 19:21
PROVIDERS: ADMIT Hospitalist; ATTEND Hospitalist
DX: E11.00 Type 2 diabetes mellitus with hyperosmolarity without nonketotic hyperglycemic-hyperosmolar coma (NKHHC) (principal); E87.1 Hypo-osmolality and hyponatremia; E87.2 Acidosis; N17.9 Acute kidney failure, unspecified; E86.0 Dehydration; E78.5 Hyperlipidemia, unspecified; F90.9 Attention-deficit hyperactivity disorder, unspecified type; E11.42 Type 2 diabetes mellitus with diabetic polyneuropathy; I10 Essential (primary) hypertension; K21.9 Gastro-esophageal reflux disease without esophagitis; R63.1 Polydipsia; Z79.4 Long term (current) use of insulin; Z79.82 Long term (current) use of aspirin; Z79.899 Other long term (current) drug therapy; Z86.73 Personal history of transient ischemic attack (TIA), and cerebral infarction without residual deficits; Z87.891 Personal history of nicotine dependence; Z91.018 Allergy to other foods
CPT/HCPCS: 36415; 70450; 72125; 80048; 80051; 80053; 81003; 82009; 82565; 82803; 82947; 83036; 83605; 83735; 83930; 84100; 84484; 84520; 85025; 93005; 96360; 96361; 96365; 96366; 96375; 99285

== ENCOUNTER 2021-06-12 06:04 | Emergency (ER) | payer MEDICARE, OTHER ==
[2021-06-12] MEDS ORDERED: SODIUM CHLORIDE 0.9% 1,000 ML IV STA (06:27)
--- NOTE | 2021-06-12 06:30 | ED ---
General Adult HPI - General Chief complaint: Syncope Stated complaint: Syncope Time Seen by Provider: 06/12/21 06:15 Source: patient, EMS, RN notes reviewed Mode of arrival: EMS Limitations: no limitations - History of Present Illness Initial comments: 66-year-old male with a past medical history of hyperlipidemia, hypertension, GERD, diabetes mellitus, CVA presents to the emergency room complaining of syncope. Patient states he got up this morning and was on the toilet having a bowel movement when he started to get lightheaded. He laid on the floor and then passed out. Patient states she has had a sore throat for the past day and hasn't felt well either.Patient has no other complaints at this time including shortness of breath, chest pain, abdominal pain, nausea or vomiting, headache, or visual changes. - Related Data Home Medications Medication Instructions Recorded Confirmed RX: Aspirin 81 mg PO DAILY 01/21/21 01/21/21 RX: Atorvastatin [Lipitor] 10 mg PO DAILY 01/21/21 01/21/21 RX: Dextroamphetamine/Amphetamine 30 mg PO BID@0800,1600 01/21/21 01/21/21 [Adderall] RX: Omeprazole 20 mg PO DAILY 01/21/21 01/21/21 RX: amLODIPine [Norvasc] 5 mg PO DAILY 01/21/21 01/21/21 Previous Rx's Medication Instructions Recorded Insulin Glargine [Lantus] 30 unit SQ DAILY #1 vial 01/23/21 RX: INSULIN ASPART (NovoLOG) 0 unit SQ ACHS vial 01/23/21 [NovoLOG (formulary)] RX: metFORMIN HCL [Glucophage] 1,000 mg PO BID-W/MEALS 30 Days 01/23/21 #120 tab Allergies Allergy/AdvReac Type Severity Reaction Status Date / Time Pork/Porcine Containing Allergy Abdominal Verified 01/21/21 17:32 Products Pain [Pork] Review of Systems ROS Statement: Those systems with pertinent positive or pertinent negative responses have been documented in the HPI. ROS Other: All systems not noted in ROS Statement are negative. Past Medical History Past Medical History: CVA/TIA, Diabetes Mellitus, GERD/Reflux, Hyperlipidemia, Hypertension Additional Past Medical History / Comment(s): 01/21/21 admitted with [facility] new diabetes diagnosis. History of Any Multi-Drug Resistant Organisms: None Reported Past Surgical History: No Surgical Hx Reported Past Psychological History: ADD/ADHD Smoking Status: Former smoker Past Alcohol Use History: None Reported Past Drug Use History: Marijuana General Exam Limitations: no limitations General appearance: alert, in no apparent distress Head exam: Present: atraumatic Eye exam: Present: normal appearance, PERRL, EOMI. Absent: scleral icterus, conjunctival injection ENT exam: Present: normal exam, mucous membranes moist Neck exam: Present: normal inspection, full ROM. Absent: tenderness Respiratory exam: Present: normal lung sounds bilaterally. Absent: respiratory distress, wheezes Cardiovascular Exam: Present: regular rate, normal rhythm, normal heart sounds GI/Abdominal exam: Present: soft, normal bowel sounds. Absent: distended, tenderness Neurological exam: Present: alert Course Vital Signs 06/12/21 06/12/21 06:09 07:49 Temperature 98.3 F Pulse Rate 69 73 Respiratory 18 16 Rate Blood Pressure 126/82 128/57 O2 Sat by Pulse 97 97 Oximetry EKG Findings - EKG Comments: EKG Findings:: Normal sinus rhythm, ventricular rate 76, FL interval 140, QTC 414 Medical Decision Making - Medical Decision Making Vitals are stable. Patient is well-appearing. No chest pain or shortness of breath preceding this. He wasn't feeling well however and did have a sore throat. EKG is nonischemic. CBC unremarkable. CMP does show some evidence of dehydration. Troponin negative. However patient did test positive for COVID- 19. Chest x-ray shows no acute pulmonary process. I suspect patient had a syncopal episode related to not feeling well from COVID-19 and dehydration. Patient was given antibody infusion and fluids. Patient will be discharged home. Will follow up for any worsening symptoms. - Lab Data Result diagrams: 06/12/21 06:34 06/12/21 06:34 Lab Results 06/12/21 06/12/21 06/12/21 Range/Units 06:34 06:34 06:34 WBC 6.2 (3.8-10.6) k/uL RBC 5.49 (4.30-5.90) m/uL Hgb 16.7 (13.0-17.5) gm/dL Hct 50.2 (39.0-53.0) % MCV 91.5 (80.0-100.0) fL MCH 30.5 (25.0-35.0) pg MCHC 33.3 (31.0-37.0) g/dL RDW 13.9 (11.5-15.5) % Plt Count 140 L (150-450) k/uL MPV 8.5 Neutrophils % 76 % Lymphocytes % 13 % Monocytes % 8 % Eosinophils % 1 % Basophils % 1 % Neutrophils # 4.7 (1.3-7.7) k/uL Lymphocytes # 0.8 L (1.0-4.8) k/uL Monocytes # 0.5 (0-1.0) k/uL Eosinophils # 0.1 (0-0.7) k/uL Basophils # 0.0 (0-0.2) k/uL PT 10.4 (9.0-12.0) sec INR 1.0 (<1.2) APTT 22.6 (22.0-30.0) sec Carbon Monoxide, Quant (<10.0) % Sodium 138 (137-145) mmol/L Potassium 3.8 (3.5-5.1) mmol/L Chloride 103 (98-107) mmol/L Carbon Dioxide 23 (22-30) mmol/L Anion Gap 12 mmol/L BUN 15 (9-20) mg/dL Creatinine 1.26 H (0.66-1.25) mg/dL Est GFR (CKD-EPI)AfAm 69 (>60 ml/min/1.73 sqM) Est GFR (CKD-EPI)NonAf 59 (>60 ml/min/1.73 sqM) Glucose 160 H (74-99) mg/dL Calcium 8.7 (8.4-10.2) mg/dL Magnesium 1.7 (1.6-2.3) mg/dL Total Bilirubin 1.1 (0.2-1.3) mg/dL AST 31 (17-59) U/L ALT 42 (4-49) U/L Alkaline Phosphatase 62 (38-126) U/L Troponin I (0.000-0.034) ng/mL Total Protein 7.1 (6.3-8.2) g/dL Albumin 4.1 (3.5-5.0) g/dL Coronavirus (PCR) (Not Detectd) Influenza Type A RNA (Not Detectd) Influenza Type B (PCR) (Not Detectd) 06/12/21 06/12/21 06/12/21 Range/Units 06:34 06:34 06:34 WBC (3.8-10.6) k/uL RBC (4.30-5.90) m/uL Hgb (13.0-17.5) gm/dL Hct (39.0-53.0) % MCV (80.0-100.0) fL MCH (25.0-35.0) pg MCHC (31.0-37.0) g/dL RDW (11.5-15.5) % Plt Count (150-450) k/uL MPV Neutrophils % % Lymphocytes % % Monocytes % % Eosinophils % % Basophils % % Neutrophils # (1.3-7.7) k/uL Lymphocytes # (1.0-4.8) k/uL Monocytes # (0-1.0) k/uL Eosinophils # (0-0.7) k/uL Basophils # (0-0.2) k/uL PT (9.0-12.0) sec INR (<1.2) APTT (22.0-30.0) sec Carbon Monoxide, Quant (<10.0) % Sodium (137-145) mmol/L Potassium (3.5-5.1) mmol/L Chloride (98-107) mmol/L Carbon Dioxide (22-30) mmol/L Anion Gap mmol/L BUN (9-20) mg/dL Creatinine (0.66-1.25) mg/dL Est GFR (CKD-EPI)AfAm (>60 ml/min/1.73 sqM) Est GFR (CKD-EPI)NonAf (>60 ml/min/1.73 sqM) Glucose (74-99) mg/dL Calcium (8.4-10.2) mg/dL Magnesium (1.6-2.3) mg/dL Total Bilirubin (0.2-1.3) mg/dL AST (17-59) U/L ALT (4-49) U/L Alkaline Phosphatase (38-126) U/L Troponin I <0.012 (0.000-0.034) ng/mL Total Protein (6.3-8.2) g/dL Albumin (3.5-5.0) g/dL Coronavirus (PCR) Detected A (Not Detectd) Influenza Type A RNA Not Detected (Not Detectd) Influenza Type B (PCR) Not Detected (Not Detectd) 06/12/21 Range/Units 07:10 WBC (3.8-10.6) k/uL RBC (4.30-5.90) m/uL Hgb (13.0-17.5) gm/dL Hct (39.0-53.0) % MCV (80.0-100.0) fL MCH (25.0-35.0) pg MCHC (31.0-37.0) g/dL RDW (11.5-15.5) % Plt Count (150-450) k/uL MPV Neutrophils % % Lymphocytes % % Monocytes % % Eosinophils % % Basophils % % Neutrophils # (1.3-7.7) k/uL Lymphocytes # (1.0-4.8) k/uL Monocytes # (0-1.0) k/uL Eosinophils # (0-0.7) k/uL Basophils # (0-0.2) k/uL PT (9.0-12.0) sec INR (<1.2) APTT (22.0-30.0) sec Carbon Monoxide, Quant 1.8 (<10.0) % Sodium (137-145) mmol/L Potassium (3.5-5.1) mmol/L Chloride (98-107) mmol/L Carbon Dioxide (22-30) mmol/L Anion Gap mmol/L BUN (9-20) mg/dL Creatinine (0.66-1.25) mg/dL Est GFR (CKD-EPI)AfAm (>60 ml/min/1.73 sqM) Est GFR (CKD-EPI)NonAf (>60 ml/min/1.73 sqM) Glucose (74-99) mg/dL Calcium (8.4-10.2) mg/dL Magnesium (1.6-2.3) mg/dL Total Bilirubin (0.2-1.3) mg/dL AST (17-59) U/L ALT (4-49) U/L Alkaline Phosphatase (38-126) U/L Troponin I (0.000-0.034) ng/mL Total Protein (6.3-8.2) g/dL Albumin (3.5-5.0) g/dL Coronavirus (PCR) (Not Detectd) Influenza Type A RNA (Not Detectd) Influenza Type B (PCR) (Not Detectd) Disposition Clinical Impression: COVID-19, Syncope Disposition: HOME SELF-CARE Condition: Good Instructions (If sedation given, give patient instructions): Coronavirus Disease 2019 (COVID-19) Additional Instructions: Please drink plenty of fluids. Follow-up with your doctor. Take vitamin C, D, and zinc. Return to the emergency room for any worsening symptoms. Is patient prescribed a controlled substance at d/c from ED?: No Referrals: Nicholas Perez MD [Primary Care Provider] - 1-2 days Time of Disposition: 08:59
[2021-06-12 07:12] LABS: Partial Thromboplastin Time 22.6 sec (22.0-30.0); Prothrombin Time 10.4 sec (9.0-12.0)
[2021-06-12 07:16] LABS: Albumin 4.1 g/dL (3.5-5.0); Calcium 8.7 mg/dL (8.4-10.2); Magnesium 1.7 mg/dL (1.6-2.3); Potassium 3.8 mmol/L (3.5-5.1); Total Bilirubin 1.1 mg/dL (0.2-1.3); Total Protein 7.1 g/dL (6.3-8.2)
--- NOTE | 2021-06-12 07:16 | XR ---
EXAMINATION TYPE: XR chest 2V DATE OF EXAM: 06/12/2021 COMPARISON: NONE HISTORY: Cough and fever. TECHNIQUE: Frontal and lateral views of the chest are obtained. FINDINGS: Overlying EKG leads are present. There is no focal air space opacity, pleural effusion, or pneumothorax seen. Mild underlying emphysematous change may be present. The cardiac silhouette size is within normal limits. The osseous structures are intact. IMPRESSION: No acute pulmonary process.
[2021-06-12 07:19] LABS: Basophils % (A) 1 %; Eosinophils # (A) 0.1 k/uL (0-0.7); Eosinophils % (A) 1 %; HCT 50.2 % (39.0-53.0); HGB 16.7 gm/dL (13.0-17.5); Lymphocytes # (A) 0.8 k/uL (1.0-4.8); Lymphocytes % (A) 13 %; MCH 30.5 pg (25.0-35.0); MCHC 33.3 g/dL (31.0-37.0); MCV 91.5 fL (80.0-100.0); Mean Platelet Volume 8.5; Monocytes # (A) 0.5 k/uL (0-1.0); Monocytes % (A) 8 %; Neutrophils # (A) 4.7 k/uL (1.3-7.7); Neutrophils % (A) 76 %; Platelet Count 140 k/uL (150-450); RBC 5.49 m/uL (4.30-5.90); RDW 13.9 % (11.5-15.5); WBC 6.2 k/uL (3.8-10.6)
[2021-06-12] MEDS ORDERED: BAMLANIVIMAB (EUA) 700 MG, ETESEVIMAB (EUA) 1,400 MG in SODIUM CHLORIDE 0.9% 100 ML IVPB ONE (09:00)
[2021-06-12] MEDS ORDERED: SODIUM CHLORIDE 0.9% 50 ML IVPB ONE (09:30)
[2021-06-12 11:12] VITALS: BP 128/74; PULSE 72; RESP 16; TEMP 98.7
== END 2021-06-12 11:10 | disposition home or self-care (01) ==
LOC: EC 06:04
DX: U07.1 COVID-19 (principal); R55 Syncope and collapse; E78.5 Hyperlipidemia, unspecified; I10 Essential (primary) hypertension; K21.9 Gastro-esophageal reflux disease without esophagitis; E11.9 Type 2 diabetes mellitus without complications; F90.9 Attention-deficit hyperactivity disorder, unspecified type; F12.90 Cannabis use, unspecified, uncomplicated; Z79.82 Long term (current) use of aspirin; Z79.4 Long term (current) use of insulin; Z79.84 Long term (current) use of oral hypoglycemic drugs; Z86.73 Personal history of transient ischemic attack (TIA), and cerebral infarction without residual deficits; Z87.891 Personal history of nicotine dependence
CPT/HCPCS: 96360; 99284; M0245; 36415; 71046; 80053; 82375; 83735; 84484; 85025; 85610; 85730; 87502; 87635; 93005

== ENCOUNTER 2022-01-03 19:29 | Emergency (ER) | payer MEDICARE ==
[2022-01-03] MEDS ORDERED: SODIUM CHLORIDE 0.9% 1,000 ML IV STA (19:48)
[2022-01-03 19:51] VITALS: TEMP 97.3
[2022-01-03 20:03] LABS: Basophils # (A) 0.1 k/uL (0-0.2); Basophils % (A) 1 %; Eosinophils # (A) 0.4 k/uL (0-0.7); Eosinophils % (A) 5 %; HCT 51.5 % (39.0-53.0); HGB 16.8 gm/dL (13.0-17.5); Lymphocytes # (A) 2.2 k/uL (1.0-4.8); Lymphocytes % (A) 34 %; MCH 29.7 pg (25.0-35.0); MCHC 32.7 g/dL (31.0-37.0); MCV 90.9 fL (80.0-100.0); Monocytes # (A) 0.4 k/uL (0-1.0); Monocytes % (A) 6 %; Neutrophils # (A) 3.3 k/uL (1.3-7.7); Neutrophils % (A) 52 %; Platelet Count 163 k/uL (150-450); RBC 5.67 m/uL (4.30-5.90); RDW 13.3 % (11.5-15.5); WBC 6.5 k/uL (3.8-10.6)
[2022-01-03 20:12] LABS: Albumin 4.2 g/dL (3.5-5.0); Calcium 8.9 mg/dL (8.4-10.2); Magnesium 1.6 mg/dL (1.6-2.3); Potassium 3.1 mmol/L (3.5-5.1); Total Bilirubin 0.8 mg/dL (0.2-1.3); Total Protein 6.8 g/dL (6.3-8.2)
[2022-01-03 20:16] LABS: Partial Thromboplastin Time 23.5 sec (22.0-30.0); Prothrombin Time 10.5 sec (9.0-12.0)
--- NOTE | 2022-01-03 21:05 | CT ---
EXAMINATION TYPE: CT brain wo con DATE OF EXAM: 01/03/2022 HISTORY: Syncope CT DLP: 1135.4 mGycm. Automated Exposure Control for Dose Reduction was Utilized. TECHNIQUE: CT scan of the head is performed without contrast. COMPARISON: 01/21/2021 FINDINGS: The calvarium is intact. There is no intracranial hemorrhage. There is no intracranial mass or mass effect. No definite new intra-axial or extra-axial attenuation defect. Previously seen remote right internal capsule lacunar infarct redemonstrated. The paranasal sinuses, middle ear cavities, and mastoid sinus air cells are clear. The orbits are unremarkable. IMPRESSION: NO ACUTE PROCESS.
[2022-01-03] MEDS ORDERED: POTASSIUM CHLORIDE ER 20 MEQ TAB.ER PO STA (21:23)
--- NOTE | 2022-01-03 21:55 | XR ---
EXAMINATION: XR chest 2V DATE AND TIME: 01/03/2022 9:13 PM CLINICAL INDICATION: PHH; syncope TECHNIQUE: Departmental protocol COMPARISON: None FINDINGS: The overlying soft tissues are prominent; this radiographic factor increases the conspicuity of the p ulmonary vasculature. That said, there is no definite acute lung parenchymal process. The pleural spaces are negative. The cardiac silhouette is not enlarged. The thoracic aorta is tortuous, appearing similar to the prio r study. The skeletal structures and soft tissues are negative for acute findings. IMPRESSION: No definite acute radiographic process.
--- NOTE | 2022-01-03 22:00 | ED ---
General Adult HPI - General Chief complaint: Syncope Stated complaint: Syncope Time Seen by Provider: 01/03/22 19:33 Source: patient, EMS, RN notes reviewed, old records reviewed Mode of arrival: EMS Limitations: no limitations - History of Present Illness Initial comments: Patient is a 66-year-old male who presents emergency Department following what s ounds like a vasovagal syncopal episode at home. [place] like he had to have a bowel movement. When to the restroom and when he sat down, had a syncopal episode. This is not the first time this happened. This is the third or fourth time he believes. States he fell forward and struck his head on a plastic bench. He came to shortly afterwards. Patient's presents emergency department and corroborates the story. States he had no chest pain or shortness of breath before hand. Did experience a crampy abdominal pain, and then had a bowel movement. His prior episodes were identical, always on the toilet when he was having a bowel movement. Denied any chest pain, shortness breath, current weakness, numbness. Denies any blurry vision. Has no other acute complaints at this time. No headaches. Presents for further evaluation at this time. - Related Data Home Medications Medication Instructions Recorded Confirmed Aspirin 81 mg PO DAILY 01/21/21 01/03/22 Atorvastatin [Lipitor] 10 mg PO DAILY 01/21/21 01/03/22 Dextroamphetamine/Amphetamine 45 mg PO BID@0800,1600 PRN 01/21/21 01/03/22 [Adderall] amLODIPine [Norvasc] 5 mg PO DAILY 01/21/21 01/03/22 Dulaglutide [Trulicity] 0.75 mg SQ SA 01/03/22 01/03/22 Pioglitazone [Actos] 15 mg PO DAILY 01/03/22 01/03/22 hydroCHLOROthiazide 25 mg PO BID 01/03/22 01/03/22 Allergies Allergy/AdvReac Type Severity Reaction Status Date / Time Pork/Porcine Containing Allergy Abdominal Verified 01/03/22 20:37 Products Pain [Pork] Review of Systems ROS Statement: Those systems with pertinent positive or pertinent negative responses have been documented in the HPI. Review of Systems: CONST: Denies fever EYES: Denies blurry vision ENT: Denies nasal congestion C/V: Denies Chest pain RESP: Denies shortness of breath GI: Denies abdominal pain : Denies dysuria SKIN: Denies rash. MSK: Denies joint pain. NEURO: Denies headache ROS Other: All systems not noted in ROS Statement are negative. Past Medical History Past Medical History: CVA/TIA, Diabetes Mellitus, GERD/Reflux, Hyperlipidemia, Hypertension Additional Past Medical History / Comment(s): 01/21/21 admitted with [facility] new diabetes diagnosis. History of Any Multi-Drug Resistant Organisms: None Reported Past Surgical History: No Surgical Hx Reported Past Psychological History: ADD/ADHD Smoking Status: Former smoker Past Alcohol Use History: None Reported Past Drug Use History: Marijuana General Exam - General Exam Comments Initial Comments: General: Appears in no acute distress. HEAD: Normal with no signs of head trauma. EYES: PERRLA, EOMI, conjunctiva normal, no discharge. Pupils 3 mm and equal bilaterally. ENT: Hearing grossly intact, normal oropharynx. RESPIRATORY: Clear breath sounds bilaterally. No wheezes, rales, or rhonchi. No respiratory distress. Initially hypoxic in triage, however at bedside patient is 95%. C/V: Chronic bradycardia. S1 and S2 auscultated. Peripheral pulses are 2+ and intact throughout. ABD: Abd is soft, nontender, nondistended EXT: Normal range of motion, no obvious deformity SKIN: No rashes or lesions observed on exposed skin. NEURO: Alert and oriented x 4. Cranial nerves II-XII intact. No focal sensory or strength deficits. NIH of 0. GCS of 15. Limitations: no limitations Course Vital Signs 01/03/22 01/03/22 01/03/22 19:31 20:00 20:50 Temperature 97.3 F L Pulse Rate 49 L 48 L Pulse Rate [ 52 L [employer] ] Respiratory 16 16 Rate Blood Pressure 116/68 116/68 O2 Sat by Pulse 92 L 97 Oximetry 01/03/22 01/03/22 21:00 22:07 Temperature Pulse Rate 53 L 61 Pulse Rate [ [employer]maker ] Respiratory 4 L Rate Blood Pressure 116/68 136/84 O2 Sat by Pulse 100 Oximetry Medical Decision Making - Medical Decision Making Based the patient's presentation and physical exam, do believe he likely experiencing a vasovagal syncope episode at home. However we will obtain cardiopulmonary laboratory studies at this time. He is asymptomatic. His no acute complaints. Vital signs within normal limits except for bradycardia which is chronic for the patient. Did recommend CT brain. He was in agreement this plan. Was documented at having a low pulse ox initially, however when I am present in the room The patient's was 95% or higher. CT brain showed no acute intracranial process. Chest x-ray shows no acute cardiopulmonary process. EKG shows no acute ischemic process. Laboratory studies are remarkable for mild hypokalemia at 3.1 which was replenished. Troponin is undetectable. Remainder the labs are unremarkable. On reevaluation, patient feels improved. Like to go home. I discussed at length with him his . As this is occurred multiple times and he has had a prior workup, I do believe it is safer to be discharged home. 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 He was in agreement with this plan. Discussed that he likely experiencing a vasovagal syncope episode. He was in agreement this plan. He expressed understanding. Vital signs remained within normal limits. I instructed the patient to follow up with their PCP in the next 1-3 days. I explained that the patient should return to the emergency department if they experience any worsening symptoms. Strict return precautions were discussed with the patient. The patient expressed understanding of these instructions. I answered all questions that the patient had. The patient was discharged home in good condition with their prescriptions and follow up information. - Lab Data Result diagrams: 01/03/22 19:53 01/03/22 19:53 Lab Results 01/03/22 01/03/22 01/03/22 Range/Units 19:53 19:53 19:53 WBC 6.5 (3.8-10.6) k/uL RBC 5.67 (4.30-5.90) m/uL Hgb 16.8 (13.0-17.5) gm/dL Hct 51.5 (39.0-53.0) % MCV 90.9 (80.0-100.0) fL MCH 29.7 (25.0-35.0) pg MCHC 32.7 (31.0-37.0) g/dL RDW 13.3 (11.5-15.5) % Plt Count 163 (150-450) k/uL MPV 8.0 Neutrophils % 52 % Lymphocytes % 34 % Monocytes % 6 % Eosinophils % 5 % Basophils % 1 % Neutrophils # 3.3 (1.3-7.7) k/uL Lymphocytes # 2.2 (1.0-4.8) k/uL Monocytes # 0.4 (0-1.0) k/uL Eosinophils # 0.4 (0-0.7) k/uL Basophils # 0.1 (0-0.2) k/uL PT 10.5 (9.0-12.0) sec INR 1.0 (<1.2) APTT 23.5 (22.0-30.0) sec Sodium 137 (137-145) mmol/L Potassium 3.1 L (3.5-5.1) mmol/L Chloride 101 (98-107) mmol/L Carbon Dioxide 27 (22-30) mmol/L Anion Gap 9 mmol/L BUN 16 (9-20) mg/dL Creatinine 1.19 (0.66-1.25) mg/dL Est GFR (CKD-EPI)AfAm 74 (>60 ml/min/1.73 sqM) Est GFR (CKD-EPI)NonAf 64 (>60 ml/min/1.73 sqM) Glucose 127 H (74-99) mg/dL Calcium 8.9 (8.4-10.2) mg/dL Magnesium 1.6 (1.6-2.3) mg/dL Total Bilirubin 0.8 (0.2-1.3) mg/dL AST 24 (17-59) U/L ALT 28 (4-49) U/L Alkaline Phosphatase 63 (38-126) U/L Troponin I (0.000-0.034) ng/mL Total Protein 6.8 (6.3-8.2) g/dL Albumin 4.2 (3.5-5.0) g/dL 01/03/22 Range/Units 19:53 WBC (3.8-10.6) k/uL RBC (4.30-5.90) m/uL Hgb (13.0-17.5) gm/dL Hct (39.0-53.0) % MCV (80.0-100.0) fL MCH (25.0-35.0) pg MCHC (31.0-37.0) g/dL RDW (11.5-15.5) % Plt Count (150-450) k/uL MPV Neutrophils % % Lymphocytes % % Monocytes % % Eosinophils % % Basophils % % Neutrophils # (1.3-7.7) k/uL Lymphocytes # (1.0-4.8) k/uL Monocytes # (0-1.0) k/uL Eosinophils # (0-0.7) k/uL Basophils # (0-0.2) k/uL PT (9.0-12.0) sec INR (<1.2) APTT (22.0-30.0) sec Sodium (137-145) mmol/L Potassium (3.5-5.1) mmol/L Chloride (98-107) mmol/L Carbon Dioxide (22-30) mmol/L Anion Gap mmol/L BUN (9-20) mg/dL Creatinine (0.66-1.25) mg/dL Est GFR (CKD-EPI)AfAm (>60 ml/min/1.73 sqM) Est GFR (CKD-EPI)NonAf (>60 ml/min/1.73 sqM) Glucose (74-99) mg/dL Calcium (8.4-10.2) mg/dL Magnesium (1.6-2.3) mg/dL Total Bilirubin (0.2-1.3) mg/dL AST (17-59) U/L ALT (4-49) U/L Alkaline Phosphatase (38-126) U/L Troponin I <0.012 (0.000-0.034) ng/mL Total Protein (6.3-8.2) g/dL Albumin (3.5-5.0) g/dL Disposition Clinical Impression: Syncope, Vasovagal syncope Disposition: HOME SELF-CARE Condition: Good Is patient prescribed a controlled substance at d/c from ED?: No Referrals: Nicholas Perez MD [Primary Care Provider] - 1-2 days Time of Disposition: 22:00
[2022-01-03 22:03] VITALS: RESP 4
[2022-01-03 22:08] VITALS: BP 136/84; PULSE 61
== END 2022-01-03 22:21 | disposition home or self-care (01) ==
LOC: EC 19:29
DX: R55 Syncope and collapse (principal); E11.9 Type 2 diabetes mellitus without complications; E78.5 Hyperlipidemia, unspecified; Z86.73 Personal history of transient ischemic attack (TIA), and cerebral infarction without residual deficits; I10 Essential (primary) hypertension; Z87.891 Personal history of nicotine dependence; Z91.018 Allergy to other foods; Z79.899 Other long term (current) drug therapy; Z79.82 Long term (current) use of aspirin; Z79.84 Long term (current) use of oral hypoglycemic drugs
CPT/HCPCS: 36415; 70450; 71046; 80053; 83735; 84484; 85025; 85610; 85730; 93005; 96360; 99284